=== PATIENT | female | born 1955 | race Caucasian/White ===

== ENCOUNTER 2021-03-27 15:05 | Emergency (ER) | payer OTHER, SELFPAY ==
--- NOTE | ~2021-03-27 | CT_ITS ---
EXAMINATION: CT ABDOMEN AND PELVIS WITHOUT CONTRAST CLINICAL INFORMATION: Left flank pain. COMPARISON: None TECHNIQUE: Multidetector volumetric imaging was performed from the superior aspect of the liver through the pubic symphysis. Sagittal and coronal reformatted images were obtained on the technologist's workstation. This CT examination was performed using dose optimization techniques as appropriate, variously including the following: *Automated exposure control *Adjustment of mA and/or kV according to patient size (this includes techniques or standardized protocols for targeted exams where dose is matched to indication/reason for exam; i.e. extremities or head) *Use of iterative reconstruction technique DLP: 760.22 mGy-cm FINDINGS: LUNG BASES: The visualized lung bases are unremarkable. LIVER, GALLBLADDER, AND BILIARY TREE: The liver is normal in size, shape, and attenuation. No focal hepatic lesion or biliary ductal dilatation is present. The gallbladder is unremarkable with no evidence of radiopaque gallstones, gallbladder wall thickening, or obvious pericholecystic inflammatory changes. PANCREAS: Unremarkable. SPLEEN: Unremarkable. ADRENAL GLANDS: Unremarkable. KIDNEYS AND URETERS: The right kidney is normal in size, shape, and attenuation. No hydronephrosis, hydroureter, or calculi seen. No perinephric stranding. There is a 0.4 cm partially obstructing left proximal ureteric calculus is present at the level of L4-L5 disc space, producing mild proximal left-sided hydroureteronephrosis and mild perinephric stranding. No additional radiopaque calculi is noted on either side. BLADDER: Unremarkable. GASTROINTESTINAL TRACT: Colonic diverticulosis related changes are noted within the large bowel without any CT features of superimposed acute diverticulitis. The appendix is visualized and is unremarkable. The small bowel loops are decompressed. Small sliding hiatal hernia is noted. ABDOMINAL WALL: No significant hernia is appreciated. LYMPH NODES: Multiple shotty mesenteric lymph nodes are noted within the upper mid abdomen, of indeterminate etiology. VASCULAR: Mild atherosclerotic disease of the aorta and is branches without aneurysm formation. PELVIC VISCERA: There is no pelvic mass present. No evidence of any free fluid and/or free air. OSSEOUS STRUCTURES: Marked diffuse osteopenia, multilevel moderate degenerative spondylosis and significant facet degenerative arthritic changes are noted at lower lumbar spine. Degenerative spondylosis at lower thoracic spine is also present. CT/CT abdomen pelvis wo con IMPRESSION: 1. Abnormal noncontrast CT scan of the abdomen and pelvis showing solitary 0.4 cm partially obstructing radiopaque proximal left ureteric calculus at the level of L4-5 disc space, producing mild proximal left-sided hydroureteronephrosis and mild perinephric stranding. No additional radiopaque calculi is noted on either side. 2. Note is also made of colonic diverticulosis and multiple shotty mesenteric lymph nodes within the upper and mid abdomen, of indeterminate etiology.
[2021-03-27 15:12] VITALS: BP 226/96; PULSE 64; RESP 18; TEMP 37.1; O2SAT 98; BMI 34.9
[2021-03-27] MEDS: Ondansetron ODT 4 MG TAB.RAPDIS TRANSLINGU (15:20)
--- NOTE | 2021-03-27 18:02 | ED_ITS ---
HPI - Female Genitourinary General Chief complaint: Urogenital-Female Stated complaint: l side pain Time Seen by Provider: 03/27/21 18:01 Source: patient and family (Daughter) Mode of arrival: ambulatory Limitations: no limitations History of Present Illness HPI Narrative: 65-year-old female walked into the ED for evaluation of left flank pain. Pain started about 5 hours ago as abrupt onset, localized to the left flank pain now is radiating down to the left lower abdomen, pain is constant, severe 8/10, nothing relieving the pain, nothing worsening the pain, pain is associated with nausea and vomiting but no fever, patient also noticed blood in the urine today, no fever, no chills, no dysuria, no frequency urination. Patient had a similar pain in the past was diagnosed with kidney stone. Patient declined history of abdominal surgery. Related Data Previous Rx's Medication Instructions Recorded oxycodone 5 mg tablet 5 mg PO Q8H PRN #10 tab 03/27/21 Allergies Allergy/AdvReac Type Severity Reaction Status Date / Time lisinopril Allergy Unknown Verified 06/07/19 00:00 Review of Systems Review of Systems: All other systems are reviewed and are negative Constitutional: Reports as per HPI and Reports no additional constitutional complaints Eyes: Reports as per HPI and Reports no additional eye complaints Reports system reviewed and no additional complaints, except as documented Cardiovascular: Reports as per HPI and Reports no additional cardiovascular complaints Respiratory: Reports as per HPI and Reports no additional respiratory complaints Gastrointestinal: Reports as per HPI and Reports no additional gastrointestinal complaints Genitourinary: Reports no additional female genitourinary complaints Musculoskeletal: Reports no additional musculoskeletal complaints Skin/Breast: Reports system reviewed and no additional complaints, except as docu Psychiatric: Reports no additional psychiatric complaints Endocrine: Reports no additional endocrine complaints Hematologic/Lymphatic: Reports no additional hematologic/lymphatic complaints Allergic/Immunologic: Reports no additional allergic/immunologic complaints Reports system reviewed and no additional complaints, except as documented and Reports Abnormal speech present [facility] Social History Social History Advance Directives: No Advance Directives Information Provided: Yes Patient : No Physical Exam Vital Signs: Vital Signs: Last Vital Signs Temp 97.6 F 03/27/21 18:03 Pulse 87 03/27/21 19:43 Resp 18 03/27/21 19:43 BP 146/84 H 03/27/21 19:43 Pulse Ox 98 03/27/21 19:43 Body Mass Index 34.9 Vital signs have been reviewed as appeared to be correct. Blood pressure elevated. Heart rate normal. Respiration rate normal. Temperature normal. Oxygen saturation normal. Appearance: Alert. Oriented X3. No acute distress. Head: Normal external exam. Normocephalic. Atraumatic. No Marks signs noted. No raccoon eyes noted Eyes: PERRLA. EOMI. Conjunctiva and sclera normal. Eyelids normal. ENT: TM's Normal. Pharynx normal. Uvula midline. Moist mucous membranes. No trismus noted. No drooling noted. No muffled voice noted. Neck: Normal inspection. Neck supple. FROM. No adenopathy. Thyroid Normal. No meningeal signs. No neck mass noted. CVS: Normal heart rate and rhythm. Heart sound normal. No murmurs noted. Pulses normal throughout. Respiratory: No respiratory distress. Painless inspiration. Breath sounds normal. No wheezes/rales/rhonchi noted. Chest nontender. No accessory muscle usage noted or decreased air movement noted. Abdomen: Soft and nontender. Bowel sounds normal in all 4 quadrants. No distention noted. No organomegaly noted. No visible injury noted. Back: Left CVA tenderness. Full range of motion noted. Skin: Skin warm and dry. Normal skin color. Normal skin turgor. No rashes/lesions/lacerations noted. Extremities: No lower extremity edema. Extremities exhibit normal range of motion. Extremities nontender. Neuro: Oriented X 3. Cranial nerve exam: II-XII are grossly intact No motor deficit. No sensory deficit. Reflexes normal. Course Course Course Narrative: Assessment and plan. 1. Left flank pain, CT and physical exam are compatible with 4 mm stone in the proximal left ureter, pain is under better control, patient has no pain symptoms now, no urinary tract infection. Patient was instructed to drink plenty of fluid, will prescribed oxycodone for pain control, and follow up with Dr. Muse at his urology office. 2. Hyperglycemia patient is typed 1 insulin-dependent diabetes initial sugar was above 400 with no DKA, patient received 2 units of IV fluids and IV 10 units of insulin blood sugar now is 220. Patient was instructed to recheck her blood sugar at home more frequent. MDM - Female Genitourinary Lab Data Attestation: I reviewed the patient's lab results. Result diagrams: 03/27/21 18:30 03/27/21 18:30 Labs: Lab Results 03/27/21 03/27/21 03/27/21 Range/Units 18:29 18:30 18:30 WBC 11.8 H (4.8-10.8) X10*3/uL RBC 5.24 (4.20-5.50) X10*6/uL Hgb 14.9 (12.0-16.0) g/dl Hct 45.6 (37-47) % MCV 87.0 (80-98) fL MCH 28.4 (27.0-33.0) pg MCHC 32.7 (31.0-35.0) g/dl RDW 13.4 (11.0-16.0) % Plt Count 215 (160-400) X10*3/uL MPV 10.0 (9.4-12.3) fL Immature Gran % (Auto) 0.5 H (0.0-0.4) % Neut % (Auto) 87.1 H (45-73) % Lymph % (Auto) 9.1 L (20-40) % [place] % (Auto) 2.9 (2-11) % Eos % (Auto) 0.1 (0-4) % Baso % (Auto) 0.3 (0-2) % Lymph # (Auto) 1.1 L (1.2-4.9) X10*3/uL [place] # (Auto) 0.3 (0.1-1.2) X10*3/uL Eos # (Auto) 0.0 (0.0-0.4) X10*3/uL Baso # (Auto) 0.0 (0.0-0.2) X10*3/uL Abs Immat Gran (auto) 0.06 H (0.00-0.03) X10*3/uL Absolute Neuts (auto) 10.3 H (2.0-8.3) X10*3/uL Absolute Nucleated RBC 0.000 (0.0-0.012) X10*3/uL Nucleated RBC % (auto) 0.0 (0.0-0.2) /100WBC Sodium 137 (135-145) mmol/L Potassium 4.6 (3.3-5.1) mmol/L Chloride 105 (96-108) mmol/L Carbon Dioxide 22 (22-29) mmol/L Anion Gap 15 (12-20) BUN 22 H (9-16) mg/dL Creatinine 1.15 (0.5-1.4) mg/dL Estim Creat Clear Calc 56.4 Estimated GFR 48 POC Glucose (60-115) mg/dL Random Glucose 444 H* (60-115) mg/dL Calcium 9.1 (8.4-10.2) mg/dL Total Bilirubin 0.4 (0.0-1.0) mg/dL Direct Bilirubin < 0.2 (0.0-0.5) mg/dL AST 18 (5-31) U/L ALT 30 (0-31) U/L Alkaline Phosphatase 135 H (39-117) U/L Total Protein 7.0 (6.5-8.0) g/dL Albumin 4.2 (3.5-5.0) g/dL Lipase 39 (8-78) U/L Urine Color STRAW Urine Appearance CLEAR Urine pH 5.0 (5.0-8.0) Ur Specific [place] 1.020 (1.005-1.025) Urine Protein 1+ H (NEG-TRACE) MG/DL Urine Glucose (UA) >=1000 H (NEG) MG/DL Urine Ketones 5 (NEG) MG/DL Urine Blood 3+ H (NEG) Urine Nitrite NEG (NEG) Ur Leukocyte Esterase NEG (NEG) Urine RBC 15-29 H (0) /HPF Urine WBC 0 (0-4) /HPF Ur Squamous Epith Cells 1+ /LPF Urine Bacteria 1+ /LPF Urine Yeast 1+ /HPF // Range/Units 20:40 WBC (4.8-10.8) X10*3/uL RBC (4.20-5.50) X10*6/uL Hgb (12.0-16.0) g/dl Hct (37-47) % MCV (80-98) fL MCH (27.0-33.0) pg MCHC (31.0-35.0) g/dl RDW (11.0-16.0) % Plt Count (160-400) X10*3/uL MPV (9.4-12.3) fL Immature Gran % (Auto) (0.0-0.4) % Neut % (Auto) (45-73) % Lymph % (Auto) (20-40) % [place] % (Auto) (2-11) % Eos % (Auto) (0-4) % Baso % (Auto) (0-2) % Lymph # (Auto) (1.2-4.9) X10*3/uL [place] # (Auto) (0.1-1.2) X10*3/uL Eos # (Auto) (0.0-0.4) X10*3/uL Baso # (Auto) (0.0-0.2) X10*3/uL Abs Immat Gran (auto) (0.00-0.03) X10*3/uL Absolute Neuts (auto) (2.0-8.3) X10*3/uL Absolute Nucleated RBC (0.0-0.012) X10*3/uL Nucleated RBC % (auto) (0.0-0.2) /100WBC Sodium (135-145) mmol/L Potassium (3.3-5.1) mmol/L Chloride (96-108) mmol/L Carbon Dioxide (22-29) mmol/L Anion Gap (12-20) BUN (9-16) mg/dL Creatinine (0.5-1.4) mg/dL Estim Creat Clear Calc Estimated GFR POC Glucose 221 H (60-115) mg/dL Random Glucose (60-115) mg/dL Calcium (8.4-10.2) mg/dL Total Bilirubin (0.0-1.0) mg/dL Direct Bilirubin (0.0-0.5) mg/dL AST (5-31) U/L ALT (0-31) U/L Alkaline Phosphatase (39-117) U/L Total Protein (6.5-8.0) g/dL Albumin (3.5-5.0) g/dL Lipase (8-78) U/L Urine Color Urine Appearance Urine pH (5.0-8.0) Ur Specific [place] (1.005-1.025) Urine Protein (NEG-TRACE) MG/DL Urine Glucose (UA) (NEG) MG/DL Urine Ketones (NEG) MG/DL Urine Blood (NEG) Urine Nitrite (NEG) Ur Leukocyte Esterase (NEG) Urine RBC (0) /HPF Urine WBC (0-4) /HPF Ur Squamous Epith Cells /LPF Urine Bacteria /LPF Urine Yeast /HPF Imaging Data CT scan - abdomen: Radiologist's impression: 1. Abnormal noncontrast CT scan of the abdomen and pelvis showing solitary 0.4 cm partially obstructing radiopaque proximal left ureteric calculus at the level of L4-5 disc space, producing mild proximal left-sided hydroureteronephrosis and mild perinephric stranding. No additional radiopaque calculi is noted on either side. 2. Note is also made of colonic diverticulosis and multiple shotty mesenteric lymph nodes within the upper and mid abdomen, of indeterminate etiology. Discharge Plan Discharge Clinical Impression: Renal colic on left side, Hyperglycemia Patient Disposition: Home, Self-Care Instructions: Kidney Stones (ED), Diabetic Hyperglycemia (ED) Additional Instructions: Drink plenty of water. Prescriptions: New oxycodone 5 mg tablet 5 mg PO Q8H PRN (Reason: pain) Qty: 10 RF: 0 Referrals: Venkata Muse MD [Physician] - 2 days Deana Rizzo PA [Primary Care Provider] - 2 days
[2021-03-27 18:03] VITALS: BP 174/81; PULSE 68; RESP 14; TEMP 36.4; O2SAT 97
[2021-03-27] MEDS: Ketorolac Tromethamine 15 MG/ML VIAL 30 MG IVPUSH (18:33)
[2021-03-27] MEDS: 0.9 % Sodium Chloride 1,000 ML 999 ML IVCONT ×2 (18:35→20:04)
[2021-03-27 18:38] LABS: MANUAL DIFF FLAG NO
[2021-03-27] MEDS: Morphine Sulfate 2 MG/ML CARTRIDGE IVPUSH (18:38)
[2021-03-27 18:40] LABS: Basophils Percent Auto 0.3 % (0-2); Eosinophils Percent Auto 0.1 % (0-4); Hematocrit 45.6 % (37-47); Hemoglobin 14.9 g/dl (12.0-16.0); Imm Gran Abs Auto 0.06 X10*3/uL (0.00-0.03); Imm Gran Pct Auto 0.5 % (0.0-0.4); Lymphocytes Absolute Auto 1.1 X10*3/uL (1.2-4.9); Lymphocytes Percent Auto 9.1 % (20-40); Mean Corpuscular HGB Conc 32.7 g/dl (31.0-35.0); Mean Corpuscular Hemoglobin 28.4 pg (27.0-33.0); Monocytes Absolute Auto 0.3 X10*3/uL (0.1-1.2); Monocytes Percent Auto 2.9 % (2-11); Neutrophils Absolute Auto 10.3 X10*3/uL (2.0-8.3); Neutrophils Percent Auto 87.1 % (45-73); Platelet Count 215 X10*3/uL (160-400); Red Blood Count 5.24 X10*6/uL (4.20-5.50); Red Cell Distribution Width 13.4 % (11.0-16.0); White Blood Count 11.8 X10*3/uL (4.8-10.8)
[2021-03-27 18:41] LABS: Appearance Urine CLEAR; Color Urine STRAW; Glucose Urine UA >=1000 MG/DL (NEG); Leukocyte Esterase Urine NEG (NEG); Nitrite Urine NEG (NEG); UACC Culture Trigger NO; Urine Blood 3+ (NEG); Urine Ketones 5 MG/DL (NEG); Urine Protein 1+ MG/DL (NEG-TRACE)
[2021-03-27 18:52] LABS: Bacteria Urine 1+ /LPF; Squamous Epithelial Cell Urine 1+ /LPF; WBC Urine 0 /HPF (0-4)
[2021-03-27 19:01] LABS: Alanine Aminotransferase 30 U/L (0-31); Albumin Level 4.2 g/dL (3.5-5.0); Alkaline Phosphatase 135 U/L (39-117); Anion Gap 15 (12-20); Aspartate Amino Transferase 18 U/L (5-31); Bilirubin Direct < 0.2 mg/dL (0.0-0.5); Bilirubin Total 0.4 mg/dL (0.0-1.0); Blood Urea Nitrogen 22 mg/dL (9-16); Calcium 9.1 mg/dL (8.4-10.2); Carbon Dioxide 22 mmol/L (22-29); Chloride 105 mmol/L (96-108); Creatinine Clr Calc Pharmacy 56.4; Estimated Glomerular Filt Rate 48; Glucose Random 444 mg/dL (60-115); Lipase 39 U/L (8-78); Potassium 4.6 mmol/L (3.3-5.1); Sodium 137 mmol/L (135-145)
--- NOTE | 2021-03-27 19:03 | PC.NURSE ---
assumed care of pt. pt resting in stretcher with family at bedside. Pt awaiting for pain to subside. Pt alert, respirations easy, n/l. skin w/d.
[2021-03-27 19:15] VITALS: BP 148/81; PULSE 88; RESP 18; O2SAT 98
[2021-03-27 19:28] VITALS: RESP 18
[2021-03-27] MEDS: HYDROmorphone HCl 1 MG/ML SYRINGE IVPUSH (19:28)
[2021-03-27] MEDS: Insulin Regular, Human 100 UNIT/ML 3 ML VIAL 10 UNIT IVPUSH (19:32)
--- NOTE | 2021-03-27 19:39 | PC.NURSE ---
pt resting in stretcher c/o pain 02/10 to abd area. MD aware and pt medicated with pain meds and insulin as per emar. VS obtained. warm blk provided and pt appears to be comfortable at this time. pt awaiting for ct.
[2021-03-27 19:43] VITALS: BP 146/84; PULSE 87; RESP 18; O2SAT 98
--- NOTE | 2021-03-27 20:41 | PC.NURSE ---
BS 221 MD AWARE. PT DENIES COMPLAINTS AT THIS TIME.
[2021-03-27 20:44] LABS: Glucose, Whole Blood 221 mg/dL (60-115)
== END 2021-03-27 21:45 | disposition home or self-care (01) ==
PROVIDERS: Emergency Provider Emergency Medicine; PCP Physician Assistant Medical
DX: N23 Unspecified renal colic (principal); E10.65 Type 1 diabetes mellitus with hyperglycemia; Z79.899 Other long term (current) drug therapy; Z79.4 Long term (current) use of insulin
CPT/HCPCS: 36415; 74176; 80048; 80076; 81001; 82947; 83690; 85025; 96361; 96374; 96375; 99284; J1170; J1885; J2270